=== PATIENT | male | born 1980 | race Hispanic/Latino ===

== ENCOUNTER 2020-01-18 14:32 | Inpatient (IN) | payer SELFPAY ==
[~2020-01-18] VITALS: Ht 188 cm; Wt 155.9 kg
[2020-01-18] MEDS ORDERED: ZOSYN 3.375GM+NS 50ML 50 ML IV ONE ×2 (15:32→23:21)
[2020-01-18] MEDS ORDERED: KETOROLAC TROMETHAMINE 30MG/ML ONE (15:32)
[2020-01-18 15:40] LABS: BASOPHILS % (AUTO) 0.2 % (0.0-5.0); EOSINOPHILS % (AUTO) 0.9 % (0.0-8.0); HEMATOCRIT 49.8 % (42-54); LYMPHOCYTES % (AUTO) 17.8 % (21.0-51.0); MEAN CORPUSCULAR HEMOGLOBIN 30.8 pg (27.0-33.0); MEAN CORPUSCULAR HGB CONC 35.5 g/dL (32.0-36.0); MEAN CORPUSCULAR VOLUME 86.6 fL (79-99); MONOCYTES % (AUTO) 7.5 % (3.0-13.0); NEUTROPHILS % (AUTO) 73.4 % (40.0-77.0); PLATELET COUNT (AUTO) 165 K/uL (130-400); RED BLOOD CELL COUNT(AUTO) 5.75 MIL/uL (4.50-6.20); RED CELL DISTRIBUTION WIDTH 13.2 % (11.0-15.5); WHITE BLOOD COUNT (AUTO) 12.1 K/uL (4.8-10.8)
[2020-01-18 15:41] LABS: INR 1.08 (0.85-1.15); PARTIAL THROMBOPLASTIN TIME 31.1 SEC (26.3-35.5); PROTHROMBIN TIME 11.6 SEC (9.6-11.6)
[2020-01-18] MEDS ORDERED: INSULIN HUMULIN R 100 UNIT/ML 3ML ONE (15:44)
[2020-01-18] MEDS ORDERED: IOHEXOL-350 75 ML VIAL IV ONE (16:15)
[2020-01-18 16:18] LABS: ALBUMIN 3.4 g/dL (3.5-5.0); CREATININE 1.1 mg/dL (0.5-1.5); POTASSIUM 4.1 mmol/L (3.5-5.1); TOTAL PROTEIN, SERUM 7.8 g/dL (6.0-8.3)
[2020-01-18] MEDS ORDERED: VANCOMYCIN 2.5 GM in SODIUM CHLORIDE 0.9% 500ML 500 ML IV ONE (17:30)
[2020-01-18] MEDS ORDERED: MORPHINE SULFATE 4 MG/1ML SYG ONE ×2 (18:17→22:05)
[2020-01-18] MEDS: SODIUM CHLORIDE 0.9% 1000ML 1,000 ML IV SCH (18:42)
[2020-01-18] MEDS ORDERED: ONDANSETRON HCL 4 MG/2 ML VIAL IV PRN (18:45)
[2020-01-18] MEDS ORDERED: VANCOMYCIN PROTOCOL PER PHARMACY IV SCH (18:45)
[2020-01-18] MEDS ORDERED: ACETAMINOPHEN 325 MG TAB PO PRN ×2 (18:45)
[2020-01-18] MEDS ORDERED: MORPHINE SULFATE 4 MG/1ML SYG IV PRN (18:45)
[2020-01-18] MEDS ORDERED: HYDRALAZINE HCL 20 MG/ML VIAL IV PRN (18:45)
[2020-01-18 19:09] LABS: ABG BASE EXCESS -0.8 mmol/L (-2.0-3.0); ABG OXYGEN SATURATION 95.2 % (95.0-99.0); ABG PCO2 40 mmHg (35-48)
[2020-01-18 19:44] LABS: HEMOGLOBIN A1C 10.1 % (4.0-6.0)
[2020-01-18] MEDS ORDERED: FAMOTIDINE/PF 20 MG/2 ML VIAL IV ONE (19:54)
[2020-01-18 20:40] LABS: CHOLESTEROL 187 mg/dL (<200); HDL CHOLESTEROL 108 mg/dL (29-71); LDL DIRECT 122 mg/dL (0-99); TRIGLYCERIDES 260 mg/dL (30-200)
[2020-01-18] MEDS ORDERED: ONDANSETRON HCL 4 MG/2 ML VIAL ONE (22:05)
[2020-01-19] MEDS ORDERED: INSULIN HUMULIN R 100 UNIT/ML 3ML SQ SCH
[2020-01-19] MEDS ORDERED: INSULIN HUMULIN R 100 UNIT/ML 3ML ONE ×2 (01:21→16:10)
[2020-01-19] MEDS ORDERED: MORPHINE SULFATE 4 MG/1ML SYG ONE ×3 (01:21→14:08)
[2020-01-19 04:19] LABS: BASOPHILS % (AUTO) 0.3 % (0.0-5.0); EOSINOPHILS % (AUTO) 1.5 % (0.0-8.0); HEMATOCRIT 43.7 % (42-54); LYMPHOCYTES % (AUTO) 17.2 % (21.0-51.0); MEAN CORPUSCULAR HEMOGLOBIN 30.3 pg (27.0-33.0); MEAN CORPUSCULAR HGB CONC 34.8 g/dL (32.0-36.0); MEAN CORPUSCULAR VOLUME 87.1 fL (79-99); MONOCYTES % (AUTO) 8.2 % (3.0-13.0); NEUTROPHILS % (AUTO) 72.5 % (40.0-77.0); PLATELET COUNT (AUTO) 122 K/uL (130-400); RED BLOOD CELL COUNT(AUTO) 5.02 MIL/uL (4.50-6.20); RED CELL DISTRIBUTION WIDTH 13.3 % (11.0-15.5); WHITE BLOOD COUNT (AUTO) 8.9 K/uL (4.8-10.8)
[2020-01-19 04:37] LABS: CREATININE 0.9 mg/dL (0.5-1.5)
[2020-01-19] MEDS ORDERED: ENOXAPARIN SODIUM 40 MG/0.4 ML SYRINGE SQ ONE (07:45)
[2020-01-19] MEDS ORDERED: ZOSYN 3.375GM+NS 50ML 50 ML IV ONE (07:45)
[2020-01-19] MEDS: ENOXAPARIN SODIUM 40 MG/0.4 ML SYRINGE SQ SCH (09:00)
[2020-01-19] MEDS: FAMOTIDINE/PF 20 MG/2 ML VIAL IV SCH ×2 (09:00→20:05)
[2020-01-19] MEDS: VANCOMYCIN 1GM+NS 250ML 250 ML IV SCH ×2 (10:00→18:02)
[2020-01-19] MEDS: SODIUM CHLORIDE 0.9% 1000ML 1,000 ML IV SCH (10:42)
[2020-01-19] MEDS: ZOSYN 3.375GM+NS 50ML 50 ML IV SCH ×2 (13:00→21:55)
[2020-01-19] MEDS: INSULIN HUMULIN R 100 UNIT/ML 3ML SQ SCH ×2 (16:25→21:57)
[2020-01-19 16:51] VITALS: BP 136/82
[2020-01-19] MEDS ORDERED: INSU100V12 SQ (17:49)
[2020-01-19] MEDS ORDERED: INSU100C6 SQ (17:49)
[2020-01-19] MEDS ORDERED: METF-527 PO (17:49)
[2020-01-19] MEDS ORDERED: VANCOMYCIN 2 GM in SODIUM CHLORIDE 0.9% 500ML 500 ML IV ONE (19:00)
[2020-01-19 19:50] VITALS: BP_SYST 159; BP_SYST 163; BP_DIAS 70; BP_DIAS 78
[2020-01-19] MEDS: MORPHINE SULFATE 4 MG/1ML SYG IV PRN (20:06)
[2020-01-19] MEDS ORDERED: INSULIN GLARGINE 100 UNITS/ML 10 ML VIAL SQ SCH (21:00)
[2020-01-19 23:57] VITALS: BP 121/66
[2020-01-20] MEDS: KETOROLAC TROMETHAMINE 15MG/ML IV PRN ×2 (00:59→14:38)
[2020-01-20] MEDS: SODIUM CHLORIDE 0.9% 1000ML 1,000 ML IV SCH ×2 (01:31→11:03)
[2020-01-20] MEDS: VANCOMYCIN 1.25 GM in SODIUM CHLORIDE 0.9% 250 ML IV SCH ×3 (02:48→18:26)
[2020-01-20 04:04] VITALS: BP 135/77
[2020-01-20 04:38] LABS: BASOPHILS % (AUTO) 0.3 % (0.0-5.0); EOSINOPHILS % (AUTO) 1.6 % (0.0-8.0); HEMATOCRIT 43.3 % (42-54); LYMPHOCYTES % (AUTO) 25.3 % (21.0-51.0); MEAN CORPUSCULAR HEMOGLOBIN 30.3 pg (27.0-33.0); MEAN CORPUSCULAR HGB CONC 34.4 g/dL (32.0-36.0); MEAN CORPUSCULAR VOLUME 88.2 fL (79-99); MONOCYTES % (AUTO) 9.4 % (3.0-13.0); PLATELET COUNT (AUTO) 133 K/uL (130-400); RED BLOOD CELL COUNT(AUTO) 4.91 MIL/uL (4.50-6.20); RED CELL DISTRIBUTION WIDTH 12.9 % (11.0-15.5); WHITE BLOOD COUNT (AUTO) 6.8 K/uL (4.8-10.8)
[2020-01-20 04:47] LABS: CREATININE 0.9 mg/dL (0.5-1.5); POTASSIUM 3.7 mmol/L (3.5-5.1)
[2020-01-20] MEDS: ZOSYN 3.375GM+NS 50ML 50 ML IV SCH ×3 (05:20→21:02)
[2020-01-20] MEDS: MORPHINE SULFATE 4 MG/1ML SYG IV PRN ×2 (05:30→10:29)
[2020-01-20] MEDS: INSULIN HUMULIN R 100 UNIT/ML 3ML SQ SCH ×4 (06:35→21:11)
[2020-01-20 07:56] VITALS: BP 122/69
[2020-01-20] MEDS: FAMOTIDINE/PF 20 MG/2 ML VIAL IV SCH (08:46)
[2020-01-20] MEDS: ENOXAPARIN SODIUM 40 MG/0.4 ML SYRINGE SQ SCH (08:47)
[2020-01-20] MEDS ORDERED: COMPOUND IV REFRIGERATED 1 EACH IVSOLN MISC PRN (11:30)
[2020-01-20 11:38] VITALS: BP 132/73
--- NOTE | 2020-01-20 12:18 | NUR ---
D/C PLAN CM spoke to pt regarding d/c planning. Pt is [place] and lives with girlfriend. States girlfriend assists in care if needed. States he follows up with clinic in [place]. Plan to home. No needs verbalized or identified. Addendum: 01/20/20 at 1221 by MARIKA NIEVES CM Amended: Links added.
[2020-01-20 16:00] VITALS: BP 103/63
[2020-01-20] MEDS: HYDROCODONE/ACETAMINOPHEN 5/325 MG TAB PO PRN (18:16)
[2020-01-20 20:00] VITALS: BP 137/71
[2020-01-20] MEDS: MORPHINE SULFATE 2 MG/ML 1ML SYG IV PRN (21:02)
[2020-01-20] MEDS: FAMOTIDINE 20MG TAB 20 MG TAB PO SCH (21:03)
[2020-01-20] MEDS: INSULIN GLARGINE 100 UNITS/ML 10 ML VIAL SQ SCH (21:10)
--- NOTE | 2020-01-20 23:14 | NUR ---
Patient to be transferred to room 310. Report given to Elyssa De La Rosa RN. Patient instructed on transfer procedure. Patient verbalizes understanding. Transferred to room 310 via wheelchair with personal belongings and with IV Zosyn running at 12.5 ml/hr via infusion pump to right AC #20 gauge -patent and intact. Pt ambulatory. AOx4. Distress /discomfort not noted. Tolerated transfer well.
[2020-01-20 23:43] VITALS: BP 128/75
[2020-01-21] MEDS: KETOROLAC TROMETHAMINE 15MG/ML IV PRN (00:28)
--- NOTE | 2020-01-21 01:00 | NUR ---
started patient on sitz bath three times a day for 30 minutes each. patient understands how to do this procedure.
[2020-01-21 01:14] VITALS: BP 135/72
[2020-01-21] MEDS: VANCOMYCIN 1.25 GM in SODIUM CHLORIDE 0.9% 250 ML IV SCH ×3 (01:34→18:39)
[2020-01-21] MEDS: ZOSYN 3.375GM+NS 50ML 50 ML IV SCH ×3 (04:00→20:31)
[2020-01-21] MEDS: MORPHINE SULFATE 2 MG/ML 1ML SYG IV PRN ×4 (04:11→18:49)
[2020-01-21 05:31] LABS: BASOPHILS % (AUTO) 0.3 % (0.0-5.0); HEMATOCRIT 42.7 % (42-54); LYMPHOCYTES % (AUTO) 24.2 % (21.0-51.0); MEAN CORPUSCULAR HEMOGLOBIN 30.5 pg (27.0-33.0); MEAN CORPUSCULAR HGB CONC 34.7 g/dL (32.0-36.0); MONOCYTES % (AUTO) 9.4 % (3.0-13.0); NEUTROPHILS % (AUTO) 63.8 % (40.0-77.0); PLATELET COUNT (AUTO) 145 K/uL (130-400); RED BLOOD CELL COUNT(AUTO) 4.85 MIL/uL (4.50-6.20); RED CELL DISTRIBUTION WIDTH 12.9 % (11.0-15.5); WHITE BLOOD COUNT (AUTO) 5.9 K/uL (4.8-10.8)
[2020-01-21 05:45] LABS: CREATININE 0.9 mg/dL (0.5-1.5); POTASSIUM 3.7 mmol/L (3.5-5.1)
[2020-01-21 05:51] VITALS: BP 118/79
[2020-01-21] MEDS: INSULIN HUMULIN R 100 UNIT/ML 3ML SQ SCH ×4 (06:12→20:35)
[2020-01-21 07:35] VITALS: BP 109/64
--- NOTE | 2020-01-21 07:50 | NUR ---
Faxed Vancomycin trough to pharmacy 14.5 Addendum: 01/21/20 at 2006 by APRIL DOUGLAS RN RN Amended: Links added.
[2020-01-21] MEDS: FAMOTIDINE 20MG TAB 20 MG TAB PO SCH ×2 (08:59→20:31)
[2020-01-21] MEDS: ENOXAPARIN SODIUM 40 MG/0.4 ML SYRINGE SQ SCH (09:00)
[2020-01-21 11:00] VITALS: BP 115/52
--- NOTE | 2020-01-21 11:30 | NUR ---
Blood sugar 276 12 units of regular insulin sq Addendum: 01/21/20 at 2008 by APRIL DOUGLAS RN RN Amended: Links added.
--- NOTE | 2020-01-21 13:15 | NUR ---
NUTRITION EDUCATION RD provided Diabetes, Weight Loss, Food Alternatives Nutrition Education via phone due to Isolation protocol. RD discussed nutrition and lifestyle recommendations with Pt. Pt reveals previously weighed 600 lbs and 200+ lbs weight loss due to playing [employer] with friends/family. Pt reports has good support community that helps with Diabetes management and making healthy food choices. RD reviewed reference materials and recommend healthy food alternatives. RD place education handouts in Pt chart. Pt notified. Addendum: 01/21/20 at [address] Amended: Links added.
--- NOTE | 2020-01-21 13:28 | NUR ---
RD NOTIFICATION Pt admitted with sepsis, Perineal Abscess, Hyperglycemia. Pt reports good appetite, however dislikes food. Pt request for HS snacks and would like to try Glucerna nutritional shake. RD provided nutrition education for wt loss, healthy eating, and diabetes. Pt previous weight of 600 lbs as per Pt. Recommend Glucerna QD Recommend HS snacks RD provided nutrition education. RD to continue to monitor. Please notify as additional nutrition concerns arise. Thank you. Addendum: 01/21/20 at [address] Amended: Links added.
--- NOTE | 2020-01-21 13:29 | NUR ---
SHANIQUA FISHMAN BE TO HOME- PATIENT/SPOUSE WILL NEED TO LEARN ANY DRESSING CHANGES Addendum: 01/21/20 at 1330 by FABIOLA HIGHTOWER RN CM Amended: Links added.
--- NOTE | 2020-01-21 15:30 | NUR ---
SITZ BATH completed by pt in bathroom back to bed warm compresses applied to scrotal area Addendum: 01/21/20 at 2009 by APRIL DOUGLAS RN RN Amended: Links added.
[2020-01-21 16:04] VITALS: BP 109/69
[2020-01-21 20:00] VITALS: BP 110/76
[2020-01-21] MEDS: INSULIN GLARGINE 100 UNITS/ML 10 ML VIAL SQ SCH (20:34)
[2020-01-22] VITALS (7 sets, daily range): BP systolic 112–140; BP diastolic 62–89
[2020-01-22] MEDS: MORPHINE SULFATE 2 MG/ML 1ML SYG IV PRN ×3 (00:08→21:41)
[2020-01-22] MEDS: VANCOMYCIN 1.25 GM in SODIUM CHLORIDE 0.9% 250 ML IV SCH ×3 (01:55→18:16)
[2020-01-22] MEDS: HYDROCODONE/ACETAMINOPHEN 5/325 MG TAB PO PRN (02:02)
[2020-01-22] MEDS: ZOSYN 3.375GM+NS 50ML 50 ML IV SCH ×3 (04:32→21:26)
[2020-01-22 05:24] LABS: BASOPHILS % (AUTO) 0.2 % (0.0-5.0); EOSINOPHILS % (AUTO) 2.9 % (0.0-8.0); HEMATOCRIT 43.5 % (42-54); LYMPHOCYTES % (AUTO) 28.9 % (21.0-51.0); MEAN CORPUSCULAR HEMOGLOBIN 29.6 pg (27.0-33.0); MEAN CORPUSCULAR HGB CONC 33.8 g/dL (32.0-36.0); MEAN CORPUSCULAR VOLUME 87.5 fL (79-99); MONOCYTES % (AUTO) 9.6 % (3.0-13.0); NEUTROPHILS % (AUTO) 58.2 % (40.0-77.0); PLATELET COUNT (AUTO) 143 K/uL (130-400); RED BLOOD CELL COUNT(AUTO) 4.97 MIL/uL (4.50-6.20); RED CELL DISTRIBUTION WIDTH 13.2 % (11.0-15.5); WHITE BLOOD COUNT (AUTO) 5.2 K/uL (4.8-10.8)
[2020-01-22] MEDS: INSULIN HUMULIN R 100 UNIT/ML 3ML SQ SCH ×4 (05:25→21:38)
[2020-01-22 05:28] LABS: POTASSIUM 3.8 mmol/L (3.5-5.1)
[2020-01-22] MEDS: FAMOTIDINE 20MG TAB 20 MG TAB PO SCH ×2 (09:00→21:26)
[2020-01-22] MEDS: ENOXAPARIN SODIUM 40 MG/0.4 ML SYRINGE SQ SCH (09:00)
[2020-01-22] MEDS: FLUCONAZOLE 100 MG TAB PO SCH (14:29)
[2020-01-22] MEDS: MORPHINE SULFATE 4 MG/1ML SYG IV PRN (14:30)
[2020-01-22] MEDS: INSULIN GLARGINE 100 UNITS/ML 10 ML VIAL SQ SCH (21:38)
[2020-01-23] MEDS: MORPHINE SULFATE 4 MG/1ML SYG IV PRN ×3 (01:57→21:10)
[2020-01-23] MEDS: VANCOMYCIN 1.25 GM in SODIUM CHLORIDE 0.9% 250 ML IV SCH (02:00)
--- NOTE | 2020-01-23 02:00 | NUR ---
VANCOMYCIN held at this time. Vanco Trough : 27.2. Result Faxed to Pharmacy per protocol
[2020-01-23 03:49] VITALS: BP 126/77
[2020-01-23] MEDS: ZOSYN 3.375GM+NS 50ML 50 ML IV SCH ×3 (04:44→21:09)
[2020-01-23] MEDS: INSULIN HUMULIN R 100 UNIT/ML 3ML SQ SCH ×4 (06:58→23:12)
[2020-01-23] MEDS: FAMOTIDINE 20MG TAB 20 MG TAB PO SCH ×2 (08:15→21:09)
[2020-01-23] MEDS: METFORMIN HCL 500 MG TABLET PO SCH ×2 (08:15→16:46)
[2020-01-23] MEDS: ENOXAPARIN SODIUM 40 MG/0.4 ML SYRINGE SQ SCH (08:15)
[2020-01-23 09:54] VITALS: BP 125/85
[2020-01-23] MEDS: FLUCONAZOLE 100 MG TAB PO SCH (10:24)
[2020-01-23 12:15] VITALS: BP 116/77
[2020-01-23] MEDS: MORPHINE SULFATE 2 MG/ML 1ML SYG IV PRN (16:52)
[2020-01-23 17:07] VITALS: BP 121/81
[2020-01-23 19:10] VITALS: BP 124/84
[2020-01-23] MEDS: LACTULOSE 20 GM/30 ML UDCUP PO PRN (21:16)
--- NOTE | 2020-01-23 21:18 | NUR ---
C/O SCROTAL PAIN PT REPORTS AFTER SITZ BATH, HE HAD INCREASED PRESSURE AND PAIN IN THE SCROTAL AREA. PT PALPATED GENITAL AREA AND STATES HE CAN "FEEL THE BALL BIGGER". INFORM KIZZY MENDOZA WHO ASSESSED PT AT BEDSIDE AND ORDERED AN ULTRASOUND OF THE GROIN. MEDICATED PT PER MAR. PARTS CATALOGUER TO BE INFORMED OF US RESULTS. CALL LIGHT WITHIN REACH, WILL CONT TO MONITOR PT.
[2020-01-23 22:45] LABS: APPEARANCE,URINE Clear (CLEAR); BILIRUBIN,URINE Negative (NEGATIVE); COLOR,URINE Yellow (YELLOW); GLUCOSE, URINE (UA) 250 mg/dL (NEGATIVE); KETONES,URINE Negative (NEGATIVE); LEUKOCYTE ESTERASE ,URINE Negative (NEGATIVE); NITRATE,URINE Negative (NEGATIVE); OCCULT BLOOD,URINE Negative (NEGATIVE); PROTEIN,URINE Negative (NEGATIVE); UROBILINOGEN,URINE 0.2 mg/dL (0.2-1.0)
[2020-01-23 23:08] LABS: BACTERIA,URINE Rare /HPF (None Seen); RBC,URINE 0-1 /HPF (0-1); SQUAMOUS EPITHELIAL CELL,UR 0-2 /HPF (0-2)
[2020-01-23] MEDS: INSULIN GLARGINE 100 UNITS/ML 10 ML VIAL SQ SCH (23:09)
[2020-01-23 23:44] VITALS: BP 120/76
[2020-01-24 03:05] VITALS: BP 138/89
[2020-01-24 04:16] LABS: BASOPHILS % (AUTO) 0.5 % (0.0-5.0); EOSINOPHILS % (AUTO) 1.9 % (0.0-8.0); HEMATOCRIT 41.9 % (42-54); LYMPHOCYTES % (AUTO) 21.6 % (21.0-51.0); MEAN CORPUSCULAR HEMOGLOBIN 30.1 pg (27.0-33.0); MEAN CORPUSCULAR HGB CONC 33.9 g/dL (32.0-36.0); MEAN CORPUSCULAR VOLUME 88.8 fL (79-99); MONOCYTES % (AUTO) 11.9 % (3.0-13.0); NEUTROPHILS % (AUTO) 63.9 % (40.0-77.0); PLATELET COUNT (AUTO) 160 K/uL (130-400); RED BLOOD CELL COUNT(AUTO) 4.72 MIL/uL (4.50-6.20); RED CELL DISTRIBUTION WIDTH 13.1 % (11.0-15.5); WHITE BLOOD COUNT (AUTO) 6.4 K/uL (4.8-10.8)
[2020-01-24 04:35] LABS: CREATININE 2.1 mg/dL (0.5-1.5); POTASSIUM 4.2 mmol/L (3.5-5.1)
[2020-01-24] MEDS: MORPHINE SULFATE 4 MG/1ML SYG IV PRN ×2 (05:01→18:16)
[2020-01-24] MEDS: ZOSYN 3.375GM+NS 50ML 50 ML IV SCH ×3 (05:01→20:18)
--- NOTE | 2020-01-24 07:00 | NUR ---
BEDSIDE REPORT GIVEN TO NIKO HAUSER AT BEDSIDE. PT STATES HE NO LONGER HAS SCROTAL PREVIOUSLY MENTIONED THROUGHOUT THE NIGHT. PT REPORTS THAT HE FEELS THE "BALL SHRUNK". US OF GROIN TISSUE TAKEN LAST NIGHT PENDING RESULTS OF US TO BE POSTED. PT HAD NO OTHER QUESTIONS OR CONCERNS AT THIS TIME.
[2020-01-24] MEDS: INSULIN HUMULIN R 100 UNIT/ML 3ML SQ SCH ×4 (07:30→21:00)
[2020-01-24 07:35] VITALS: BP 101/57
[2020-01-24] MEDS: METFORMIN HCL 500 MG TABLET PO SCH ×2 (10:19→16:32)
[2020-01-24] MEDS: FAMOTIDINE 20MG TAB 20 MG TAB PO SCH ×2 (10:19→20:18)
[2020-01-24] MEDS: ENOXAPARIN SODIUM 40 MG/0.4 ML SYRINGE SQ SCH (10:20)
[2020-01-24] MEDS: FLUCONAZOLE 100 MG TAB PO SCH (10:20)
[2020-01-24 10:35] VITALS: BP 130/80
[2020-01-24 15:56] VITALS: BP 116/76
[2020-01-24 19:00] VITALS: BP 126/72
[2020-01-24] MEDS: INSULIN GLARGINE 100 UNITS/ML 10 ML VIAL SQ SCH (20:19)
[2020-01-24 23:41] VITALS: BP 132/76
[2020-01-25 03:00] VITALS: BP 128/89
[2020-01-25] MEDS: ZOSYN 3.375GM+NS 50ML 50 ML IV SCH ×3 (03:02→21:08)
[2020-01-25] MEDS: MORPHINE SULFATE 4 MG/1ML SYG IV PRN (03:02)
[2020-01-25 04:06] LABS: BASOPHILS % (AUTO) 0.3 % (0.0-5.0); EOSINOPHILS % (AUTO) 1.2 % (0.0-8.0); HEMATOCRIT 43.3 % (42-54); LYMPHOCYTES % (AUTO) 23.5 % (21.0-51.0); MEAN CORPUSCULAR HEMOGLOBIN 29.8 pg (27.0-33.0); MEAN CORPUSCULAR HGB CONC 33.5 g/dL (32.0-36.0); MEAN CORPUSCULAR VOLUME 88.9 fL (79-99); MONOCYTES % (AUTO) 10.6 % (3.0-13.0); NEUTROPHILS % (AUTO) 64.1 % (40.0-77.0); PLATELET COUNT (AUTO) 163 K/uL (130-400); RED BLOOD CELL COUNT(AUTO) 4.87 MIL/uL (4.50-6.20); RED CELL DISTRIBUTION WIDTH 12.9 % (11.0-15.5); WHITE BLOOD COUNT (AUTO) 6.4 K/uL (4.8-10.8)
[2020-01-25 04:22] LABS: CREATININE 2.1 mg/dL (0.5-1.5); POTASSIUM 4.3 mmol/L (3.5-5.1)
[2020-01-25] MEDS: METFORMIN HCL 500 MG TABLET PO SCH ×2 (05:57→15:14)
[2020-01-25] MEDS: INSULIN HUMULIN R 100 UNIT/ML 3ML SQ SCH ×4 (05:59→21:00)
[2020-01-25 08:00] VITALS: BP 130/76
[2020-01-25] MEDS: HYDROCODONE/ACETAMINOPHEN 5/325 MG TAB PO PRN ×3 (08:40→21:18)
[2020-01-25] MEDS: FAMOTIDINE 20MG TAB 20 MG TAB PO SCH ×2 (08:40→21:08)
[2020-01-25] MEDS: ENOXAPARIN SODIUM 40 MG/0.4 ML SYRINGE SQ SCH (08:44)
[2020-01-25] MEDS: FLUCONAZOLE 100 MG TAB PO SCH (08:47)
[2020-01-25] MEDS: LACTULOSE 20 GM/30 ML UDCUP PO PRN (08:52)
--- NOTE | 2020-01-25 10:30 | NUR ---
DR. MOLINA PAGED PENDING CALL BACK. RE; SCROTAL ABSCESS.
[2020-01-25 11:40] VITALS: BP 113/67
--- NOTE | 2020-01-25 13:00 | NUR ---
MR KRISHNA-PA AT BEDSIDE NO INTERVENTION FOR NOW. DEPENDING ON HOW IT LOOKS TOMORROW WILL DECIDE IF SURGERY IS NECESSARY OR NOT. FOR NOW CONTINUE WITH ANTIBIOTICS.
[2020-01-25 16:00] VITALS: BP 102/54
--- NOTE | 2020-01-25 17:35 | NUR ---
NOTE: [facility] CM CAN BE CALLED TO REVIEW [facility] RX'S FOR LOW COST OPTIONS AND /OR PROVIDE GOOD RX COUPONS. CHART TAGGED Addendum: 01/25/20 at 1737 by FABIOLA HIGHTOWER RN CM Amended: Links added.
[2020-01-25 19:58] VITALS: BP 122/76
[2020-01-25] MEDS: INSULIN GLARGINE 100 UNITS/ML 10 ML VIAL SQ SCH (21:11)
[2020-01-25 23:39] VITALS: BP 121/67
[2020-01-26] MEDS: MORPHINE SULFATE 4 MG/1ML SYG IV PRN ×3 (01:29→23:03)
[2020-01-26 04:06] VITALS: BP 124/69
[2020-01-26] MEDS: ZOSYN 3.375GM+NS 50ML 50 ML IV SCH ×3 (04:40→21:39)
[2020-01-26 05:58] LABS: BASOPHILS % (AUTO) 0.5 % (0.0-5.0); EOSINOPHILS % (AUTO) 1.9 % (0.0-8.0); HEMATOCRIT 44.2 % (42-54); LYMPHOCYTES % (AUTO) 30.4 % (21.0-51.0); MEAN CORPUSCULAR HEMOGLOBIN 30.1 pg (27.0-33.0); MEAN CORPUSCULAR HGB CONC 33.3 g/dL (32.0-36.0); MEAN CORPUSCULAR VOLUME 90.4 fL (79-99); MONOCYTES % (AUTO) 11.4 % (3.0-13.0); NEUTROPHILS % (AUTO) 55.5 % (40.0-77.0); PLATELET COUNT (AUTO) 169 K/uL (130-400); RED BLOOD CELL COUNT(AUTO) 4.89 MIL/uL (4.50-6.20); RED CELL DISTRIBUTION WIDTH 12.8 % (11.0-15.5); WHITE BLOOD COUNT (AUTO) 5.9 K/uL (4.8-10.8)
[2020-01-26 06:39] LABS: CREATININE 2.2 mg/dL (0.5-1.5); POTASSIUM 4.5 mmol/L (3.5-5.1)
[2020-01-26] MEDS: INSULIN HUMULIN R 100 UNIT/ML 3ML SQ SCH ×4 (07:26→21:43)
[2020-01-26] MEDS: HYDROCODONE/ACETAMINOPHEN 5/325 MG TAB PO PRN (09:13)
[2020-01-26] MEDS: FAMOTIDINE 20MG TAB 20 MG TAB PO SCH ×2 (09:13→21:00)
[2020-01-26] MEDS: FLUCONAZOLE 100 MG TAB PO SCH (09:14)
[2020-01-26] MEDS: METFORMIN HCL 500 MG TABLET PO SCH ×2 (09:14→17:34)
[2020-01-26 09:15] VITALS: BP 124/75
[2020-01-26] MEDS: ENOXAPARIN SODIUM 40 MG/0.4 ML SYRINGE SQ SCH (09:22)
[2020-01-26] MEDS: SODIUM CHLORIDE 0.9% 1000ML 1,000 ML IV SCH ×2 (09:24→23:25)
[2020-01-26 12:37] VITALS: BP_SYST 130; BP_SYST 146; BP_DIAS 72; BP_DIAS 73
[2020-01-26 16:39] VITALS: BP_SYST 110; BP_SYST 145; BP_DIAS 65; BP_DIAS 75
[2020-01-26 20:43] VITALS: BP 126/66
[2020-01-26] MEDS: INSULIN GLARGINE 100 UNITS/ML 10 ML VIAL SQ SCH (21:42)
[2020-01-26 23:45] VITALS: BP 127/61
[2020-01-27 03:50] VITALS: BP 113/56
[2020-01-27] MEDS: MORPHINE SULFATE 2 MG/ML 1ML SYG IV PRN ×2 (03:50→17:24)
[2020-01-27] MEDS: ZOSYN 3.375GM+NS 50ML 50 ML IV SCH ×3 (04:44→20:34)
[2020-01-27] MEDS: INSULIN HUMULIN R 100 UNIT/ML 3ML SQ SCH ×4 (05:11→20:33)
[2020-01-27 08:00] VITALS: BP 119/81
[2020-01-27 08:57] LABS: CREATININE 2.1 mg/dL (0.5-1.5); POTASSIUM 4.3 mmol/L (3.5-5.1)
[2020-01-27] MEDS: FAMOTIDINE 20MG TAB 20 MG TAB PO SCH ×2 (09:00→20:34)
[2020-01-27] MEDS: ENOXAPARIN SODIUM 40 MG/0.4 ML SYRINGE SQ SCH (09:34)
[2020-01-27] MEDS: METFORMIN HCL 500 MG TABLET PO SCH ×2 (09:34→16:10)
[2020-01-27] MEDS: FLUCONAZOLE 100 MG TAB PO SCH (09:34)
[2020-01-27] MEDS: HYDROCODONE/ACETAMINOPHEN 5/325 MG TAB PO PRN (09:40)
[2020-01-27 11:48] VITALS: BP 132/88
[2020-01-27] MEDS: SODIUM CHLORIDE 0.9% 1000ML 1,000 ML IV SCH ×2 (12:04→20:35)
[2020-01-27 16:00] VITALS: BP 104/74
[2020-01-27 19:30] VITALS: BP 149/76
[2020-01-27] MEDS: INSULIN GLARGINE 100 UNITS/ML 10 ML VIAL SQ SCH (20:33)
[2020-01-27] MEDS: MORPHINE SULFATE 4 MG/1ML SYG IV PRN (22:17)
[2020-01-27 23:33] VITALS: BP 124/66
[2020-01-28] VITALS (25 sets, daily range): BP systolic 90–124; BP diastolic 49–77
[2020-01-28] MEDS: MORPHINE SULFATE 4 MG/1ML SYG IV PRN ×3 (02:32→19:58)
[2020-01-28] MEDS: ZOSYN 3.375GM+NS 50ML 50 ML IV SCH ×2 (04:12→13:22)
[2020-01-28 05:25] LABS: MEAN CORPUSCULAR HEMOGLOBIN 29.2 pg (27.0-33.0); MEAN CORPUSCULAR HGB CONC 32.5 g/dL (32.0-36.0); MEAN CORPUSCULAR VOLUME 89.7 fL (79-99); PLATELET COUNT (AUTO) 196 K/uL (130-400); RED BLOOD CELL COUNT(AUTO) 5.35 MIL/uL (4.50-6.20); RED CELL DISTRIBUTION WIDTH 12.8 % (11.0-15.5); WHITE BLOOD COUNT (AUTO) 7.1 K/uL (4.8-10.8)
[2020-01-28 05:37] LABS: POTASSIUM 4.6 mmol/L (3.5-5.1)
[2020-01-28 05:50] LABS: BAND NEUTROPHILS % (MANUAL) 6 % (0-2); LYMPHOCYTES % (MANUAL) 21 % (22-44); MAN.DIFF COMMENT-IMPRESSION MANUAL DIFFERENTIAL; MONOCYTES % (MANUAL) 5 % (2-9); PLATELET MORPHOLOGY COMMENT ADEQUATE; SEGMENTED NEUTROPHILS % 68 % (40-70)
[2020-01-28] MEDS: INSULIN HUMULIN R 100 UNIT/ML 3ML SQ SCH ×4 (06:17→20:51)
[2020-01-28] MEDS: METFORMIN HCL 500 MG TABLET PO SCH ×2 (08:00→16:49)
--- NOTE | 2020-01-28 08:00 | NUR ---
NPO FOR I/D OF SCROTAL ABSCESS.
[2020-01-28] MEDS: ENOXAPARIN SODIUM 40 MG/0.4 ML SYRINGE SQ SCH (09:00)
[2020-01-28] MEDS: FAMOTIDINE 20MG TAB 20 MG TAB PO SCH ×2 (09:00→19:57)
[2020-01-28] MEDS: FLUCONAZOLE 100 MG TAB PO SCH (09:16)
--- NOTE | 2020-01-28 13:00 | NUR ---
TO OR NOW.
[2020-01-28] MEDS ORDERED: LIDOCAINE PF 2% 5ML ABBOJECT ONE (13:53)
[2020-01-28] MEDS ORDERED: PROPOFOL 10 MG/ML 20ML VIAL IV ONE (13:53)
[2020-01-28] MEDS ORDERED: SUCCINYLCHOLINE 200MG/10ML SYR ONE (13:53)
[2020-01-28] MEDS ORDERED: FENTANYL CITRATE PF 50 MCG/1 ML 2ML VIAL ONE (13:54)
[2020-01-28] MEDS ORDERED: SUCCINYLCHOLINE CHLORIDE 20 MG/ML 10 ML VIAL ONE (13:57)
[2020-01-28] MEDS ORDERED: MIDAZOLAM HCL 1 MG/ML 2ML VIAL ONE (14:02)
[2020-01-28] MEDS ORDERED: LIDOCAINE 1%-EPI 1:100,000 20 ML VIAL IJ ONE (14:30)
[2020-01-28] MEDS ORDERED: KETOROLAC TROMETHAMINE 30MG/ML ONE (14:31)
[2020-01-28] MEDS ORDERED: MEPERIDINE-PF 25 MG/ML SYG ONE (15:20)
--- NOTE | 2020-01-28 15:54 | NUR ---
POST OP NOTES: BACK FROM OR, AWAKE AND ALERT, STATES FEELS DEHYDRATED. ALSO STATES FEELS BETTER, PACKING TO SCROTAL AREA IN PLACE AND NOW CLEAN AND DRY. BP101/55, HR92, RR 15, T97.3, O2SATS 94% ON RA
[2020-01-28] MEDS: SODIUM CHLORIDE 0.9% 1000ML 1,000 ML IV SCH ×2 (15:58→19:57)
[2020-01-28] MEDS: INSULIN GLARGINE 100 UNITS/ML 10 ML VIAL SQ SCH (20:02)
[2020-01-29] VITALS: BP 113/65
[2020-01-29] MEDS: MORPHINE SULFATE 2 MG/ML 1ML SYG IV PRN ×2 (02:36→11:27)
[2020-01-29] MEDS: ACETAMINOPHEN-CODEINE 300/30MG TAB PO PRN ×2 (03:44→15:24)
[2020-01-29 04:00] VITALS: BP 108/62
[2020-01-29] MEDS: SODIUM CHLORIDE 0.9% 1000ML 1,000 ML IV SCH ×2 (04:45→18:05)
[2020-01-29] MEDS: INSULIN HUMULIN R 100 UNIT/ML 3ML SQ SCH ×4 (05:37→20:50)
--- NOTE | 2020-01-29 06:00 | NUR ---
PACKING Wound oacked with iodoform,had slight amount of bleeding noted.Pt regina well.
[2020-01-29 06:01] LABS: BASOPHILS % (AUTO) 0.3 % (0.0-5.0); EOSINOPHILS % (AUTO) 1.8 % (0.0-8.0); HEMATOCRIT 43.5 % (42-54); LYMPHOCYTES % (AUTO) 25.7 % (21.0-51.0); MEAN CORPUSCULAR HEMOGLOBIN 30.1 pg (27.0-33.0); MEAN CORPUSCULAR HGB CONC 33.3 g/dL (32.0-36.0); MEAN CORPUSCULAR VOLUME 90.4 fL (79-99); MONOCYTES % (AUTO) 7.6 % (3.0-13.0); NEUTROPHILS % (AUTO) 64.5 % (40.0-77.0); PLATELET COUNT (AUTO) 174 K/uL (130-400); RED BLOOD CELL COUNT(AUTO) 4.81 MIL/uL (4.50-6.20); RED CELL DISTRIBUTION WIDTH 12.7 % (11.0-15.5); WHITE BLOOD COUNT (AUTO) 7.2 K/uL (4.8-10.8)
[2020-01-29 06:25] LABS: BILIRUBIN,TOTAL 0.7 mg/dL (0.2-1.0); POTASSIUM 4.6 mmol/L (3.5-5.1); TOTAL PROTEIN, SERUM 6.8 g/dL (6.0-8.3)
[2020-01-29 08:00] VITALS: BP 121/56
[2020-01-29] MEDS: ENOXAPARIN SODIUM 40 MG/0.4 ML SYRINGE SQ SCH (09:00)
[2020-01-29] MEDS: FLUCONAZOLE 100 MG TAB PO SCH (11:27)
[2020-01-29] MEDS: METFORMIN HCL 500 MG TABLET PO SCH ×2 (11:27→18:22)
[2020-01-29] MEDS: FAMOTIDINE 20MG TAB 20 MG TAB PO SCH ×2 (11:27→21:20)
[2020-01-29 12:06] VITALS: BP 134/81
--- NOTE | 2020-01-29 15:38 | NUR ---
RD FOLLOW UP At time of call, Pt reports dislikes foods, requires sandwiched at meals, hours of sleep snacks, Glucerna QD. Order previously placed however altered throughout hospital course. Diet order updated. Pt services notified. RD to continue to monitor. Please notify RD as additional nutrition concerns arise. Thank you. Addendum: 01/29/20 at [address] Amended: Links added.
[2020-01-29 16:00] VITALS: BP 129/63
[2020-01-29] MEDS: HYDROCODONE/ACETAMINOPHEN 5/325 MG TAB PO PRN (18:22)
[2020-01-29 19:30] VITALS: BP 112/62
[2020-01-29] MEDS: AMOXICILLIN/POTASSIUM CLAV 875-125 TABLET PO SCH (21:20)
[2020-01-29] MEDS: INSULIN GLARGINE 100 UNITS/ML 10 ML VIAL SQ SCH (21:21)
[2020-01-30] VITALS: BP 100/50
[2020-01-30 04:00] VITALS: BP 101/49
[2020-01-30] MEDS: ACETAMINOPHEN-CODEINE 300/30MG TAB PO PRN ×2 (05:02→10:58)
[2020-01-30 06:12] LABS: BASOPHILS % (AUTO) 0.3 % (0.0-5.0); EOSINOPHILS % (AUTO) 2.5 % (0.0-8.0); LYMPHOCYTES % (AUTO) 30.9 % (21.0-51.0); MEAN CORPUSCULAR HEMOGLOBIN 29.4 pg (27.0-33.0); MEAN CORPUSCULAR HGB CONC 32.8 g/dL (32.0-36.0); MEAN CORPUSCULAR VOLUME 89.8 fL (79-99); MONOCYTES % (AUTO) 8.2 % (3.0-13.0); NEUTROPHILS % (AUTO) 57.8 % (40.0-77.0); PLATELET COUNT (AUTO) 173 K/uL (130-400); RED BLOOD CELL COUNT(AUTO) 4.79 MIL/uL (4.50-6.20); RED CELL DISTRIBUTION WIDTH 12.7 % (11.0-15.5); WHITE BLOOD COUNT (AUTO) 6.1 K/uL (4.8-10.8)
[2020-01-30 06:43] LABS: BILIRUBIN,TOTAL 0.5 mg/dL (0.2-1.0); CREATININE 1.9 mg/dL (0.5-1.5); POTASSIUM 4.8 mmol/L (3.5-5.1); TOTAL PROTEIN, SERUM 6.9 g/dL (6.0-8.3)
[2020-01-30] MEDS: SODIUM CHLORIDE 0.9% 1000ML 1,000 ML IV SCH (07:25)
[2020-01-30] MEDS: INSULIN HUMULIN R 100 UNIT/ML 3ML SQ SCH ×2 (07:30→11:30)
[2020-01-30] MEDS: AMOXICILLIN/POTASSIUM CLAV 875-125 TABLET PO SCH (08:05)
[2020-01-30] MEDS: METFORMIN HCL 500 MG TABLET PO SCH (08:05)
[2020-01-30] MEDS: ENOXAPARIN SODIUM 40 MG/0.4 ML SYRINGE SQ SCH (08:06)
[2020-01-30] MEDS: FAMOTIDINE 20MG TAB 20 MG TAB PO SCH (08:07)
[2020-01-30 08:51] VITALS: BP 129/72
[2020-01-30] MEDS: FLUCONAZOLE 100 MG TAB PO SCH (10:57)
[2020-01-30 11:51] VITALS: BP 129/75
[2020-01-30] MEDS ORDERED: AMOX1TAB16 PO (14:26)
[2020-01-30] MEDS ORDERED: FLUC100T8 PO (14:26)
--- NOTE | 2020-01-30 15:13 | NUR ---
PT LEFT VIA WHEEL CHAIR IN PVT CAR WITH , ANTIBIOTIC SENT TO [facility]. PT SHOWN HOW TO CHANGE DRESSING. DRESSING WAS DRY AND INTACT. PT IS INSTRUCTED TO F/U WITH DR. VALDES AND PRIMARY MD. PT WAS A/A X 3, V/S STABLE NO COMPLICATION UPON D/C.
== END 2020-01-30 15:10 | disposition home or self-care (01) | DRG 854 ==
LOC: EDH 14:32 → EDHIP 14:33 → 4CH 23:56 → EDHIP 23:58 → 4CH 01-19 16:18 → 3BH 01-20 23:44
PROVIDERS: ADMIT Hospitalist; ATTEND Hospitalist
PROC: 0D9Q0ZZ Drainage of Anus, Open Approach (ICD-10-PCS; principal; 2020-01-28 14:05)
DX: A41.9 Sepsis, unspecified organism (principal); L02.215 Cutaneous abscess of perineum; K61.0 Anal abscess; N17.9 Acute kidney failure, unspecified; Z68.41 Body mass index [BMI] 40.0-44.9, adult; E66.01 Morbid (severe) obesity due to excess calories; Z79.4 Long term (current) use of insulin; I10 Essential (primary) hypertension
CPT/HCPCS: 36415; 36600; 71045; 72193; 76536; 76770; 76870; 80048; 80053; 80061; 80202; 81001; 82010; 82550; 82803; 82948; 83036; 83605; 84484; 85025; 85610; 85730; 87040; 87070; 87076; 93005; 99291; A6266; G0378; J0330; J1650; J1815; J1885; J2001; J2175; J2250; J2270; J2405; J2543; J2704; J3010; J3370; J3490; J7030; J7040; J7050; Q9967